=== PATIENT | male | born 1990 | race Caucasian/White ===

== ENCOUNTER → 2016-11-19 | Day surgery (SDC) | payer OTHER ==
[~2016-11-19] VITALS: Ht 167.6 cm; Wt 63.2 kg
[~2016-11-19] MED LIST: LEVAQUIN500 MG PO; PERCOCET 5-3251 EACH PO
--- NOTE | ~2016-11-19 | ER ---
PATIENT'S NAME: ANA PAULA [facility] AGE: 26 Y [address] ROOM: [place] [address] [place]: [facility] [place]: 11/19/2016 ER/Outpatient Report DISCHARGE DATE: FAMILY PHYSICIAN: PHYSICIAN, NO ATTENDING PHYSICIAN: Pilo Trinh CHIEF COMPLAINT: Left thumb injury. HISTORY OF PRESENT ILLNESS: The patient arrived here per private car from [facility], approximately 3 hours prior to arrival, he got his left thumb crushed between the hitch and a trailer. He was seen at [facility] where x-rays were completed and IV was started. He was given Demerol for pain, 2 g of Ancef, and his tetanus shot was updated. He is transferred here to be seen by Dr. Trinh for further care of his thumb. He states it is becoming painful again. He denies any other injuries from the incident. ALLERGIES: HE HAS NO KNOWN ALLERGIES. CURRENT MEDICATIONS: No current medications. PAST MEDICAL HISTORY: Negative. PAST SURGICAL HISTORY: Negative. SOCIAL HISTORY: He lives in the [facility]. Denies use of tobacco, drugs, or alcohol. REVIEW OF SYSTEMS: All negative other than those mentioned in the HPI. PHYSICAL EXAMINATION: VITAL SIGNS: He states he is 5 feet 6 inches. Weighs 64.8 kg. Blood pressure is 144/88, pulse of 81, respirations 17, temperature of 98.0, tympanic, and O2 saturation is 99% on room air. GENERAL APPEARANCE: He is awake, alert, and oriented x4. SKIN: [place], warm, and dry. RESPIRATORY: Respirations are even and nonlabored. Lung sounds are clear throughout. HEART: Regular rate and rhythm. PATIENT'S NAME: ANA PAULA [facility] AGE: 26 Y [address] ROOM: [place], [place] [address] LOCATION: [facility] [place] ADMIT DATE: 11/19/2016 ER/Outpatient Report DISCHARGE DATE: FAMILY PHYSICIAN: PHYSICIAN, MYNOR ATTENDING PHYSICIAN: Pilo Trinh EMERGENCY DEPARTMENT COURSE: The patient has a dressing on his left thumb. No bleeding from the area at this time. Dr. Trinh was contacted. The patient was given fentanyl 50 mcg for the pain. Dr. Trinh did come in and see the patient. He plans to take him to the OR for repair of the left thumb injury. IMPRESSION: Open fracture of the left distal thumb. PLAN: The patient is to go to the OR for continued care of Dr. Trinh. The patient and his family are aware of plan of care. KENNY THAO APRN FOR MD CARMEN DAMON/josh /[id number] d: 11/19/162053 t: 11/23/161849, OUTPATIENT REPORT
== END | disposition disaster alternative care site (69) ==
LOC: GACC 11:46 → GSDC 13:12
PROC: 0JDH0ZZ Extraction of Left Lower Arm Subcutaneous Tissue and Fascia, Open Approach (ICD-10-PCS; principal; 2016-11-19)
PROC: 0PSQ04Z Reposition Left Metacarpal with Internal Fixation Device, Open Approach (ICD-10-PCS; 2016-11-19)
PROC: 0HQQXZZ Repair Finger Nail, External Approach (ICD-10-PCS; 2016-11-19)
DX: S62.522B Displaced fracture of distal phalanx of left thumb, initial encounter for open fracture (principal); S61.112A Laceration without foreign body of left thumb with damage to nail, initial encounter; V84.9XXA Unspecified occupant of special agricultural vehicle injured in nontraffic accident, initial encounter
CPT/HCPCS: J0690; J2250; J3010; J7120; J7121